=== PATIENT | female | born 1965 | race Caucasian/White ===

== ENCOUNTER → 2019-09-04 | Outpatient (CLI) | payer OTHER ==
[~2019-09-04] MED LIST: ABILIFY10 MG PO; ACETAMINOPHEN-1 EAC1 PO; ADIPEX-P37.5 M1 PO; AMOXICILLIN875 MG PO; BENTYL20 MG PO; BIRTH CONTROL; CELEXA40 MG PO; CIPRO500 MG PO; CIPROFLOXACIN500 M1 PO; FLEXERIL; IBUPROFEN 800800 M1; IBUPROFEN 800800 MG PO; NEURONTIN100 MG; NOHOMEMEDICATIONS; NORCO 5-325 TA1 EACH PO; PERCOCET 10-321 EACH PO; PHENTERMINE H37.5 MG; PYRIDIUM200 MG PO; ROBAXIN500 MG PO; SULFAMETHOXAZO1 EAC1 PO; ZOFRAN4 MG PO; ZPAK PO
== END ==
LOC: M.RAD 09:59
DX: Z12.31 Encounter for screening mammogram for malignant neoplasm of breast (principal)